=== PATIENT | female | born 1970 | race Caucasian/White ===

== ENCOUNTER 2021-07-30 12:32 | Emergency (ER) | payer MEDICAID ==
[~2021-07-30] VITALS: Ht 162.6 cm; Wt 79.0 kg
[2021-07-30] MEDS ORDERED: LEVETIRACETAM 500MG PREMIX 100 ML IV ONE (13:00)
[2021-07-30 13:10] LABS: BASOPHILS % 0.9 % (0.0-2.0); EOSINOPHILS % 0.7 % (0.0-5.0); HEMATOCRIT. 38.8 % (36.0-48.0); HEMOGLOBIN. 13.3 g/dL (12.0-16.0); LYMPHOCYTES % 33.4 % (20.0-50.0); MEAN CORPUSCULAR HEMOGLOBIN 32.2 pg (28.0-32.0); MEAN CORPUSCULAR VOLUME 93.7 fL (81.0-99.0); MEAN PLATELET VOLUME 7.3 fl (7.4-10.4); MONOCYTES % 6.4 % (2.0-8.0); NEUTROPHILS % 58.6 % (40.0-76.0); PLATELET 294 x1000/uL (130-400); RED BLOOD CELL COUNT 4.14 mill/uL (4.2-5.4)
[2021-07-30 13:21] LABS: CHLORIDE 96 mEq/L (98-107); HCG SCREEN NEGATIVE
[2021-07-30 20:35] VITALS: BP 132/61
== END 2021-07-30 20:53 | disposition home or self-care (01) ==
LOC: ER 12:48
DX: G40.909 Epilepsy, unspecified, not intractable, without status epilepticus (principal); F79 Unspecified intellectual disabilities
CPT/HCPCS: 36415; 70450; 80053; 84703; 85025; 96365; 99285; J1953